=== PATIENT | female | born 1990 | race Caucasian/White ===

== ENCOUNTER 2024-02-19 10:06 | Emergency (ER) | payer MEDICAID ==
[~2024-02-19] VITALS: Ht 160 cm; Wt 60.0 kg
[~2024-02-19 10:06] MED LIST: AMLO5TAB88 PO
[2024-02-19 10:15] VITALS: BP 161/110; PULSE 71; RESP 18; TEMP 97.9; O2SAT 100
[2024-02-19] MEDS ORDERED: PERM60CR4 TP (10:26)
[2024-02-19] MEDS ORDERED: PIPE118S11 TP (10:26)
== END 2024-02-19 10:56 | disposition home or self-care (01) ==
LOC: ER 10:06
DX: B86 Scabies (principal)
CPT/HCPCS: 99282

== ENCOUNTER 2024-04-03 03:09 | Emergency (ER) | payer MEDICAID ==
[~2024-04-03] VITALS: Ht 162.6 cm; Wt 68.0 kg
[~2024-04-03 03:09] MED LIST changes: +PERM60CR4 TP; +PIPE118S11 TP
[2024-04-03 03:13] VITALS: O2SAT 100
[2024-04-03 05:06] LABS: CARBON DIOXIDE 25 mEq/L (21-32); CHLORIDE 109 mEq/L (98-107); POTASSIUM 3.3 mEq/L (3.5-5.1); SODIUM 141 mEq/L (136-145)
[2024-04-03 05:07] LABS: CALCIUM 9.1 mg/dL (8.7-10.4)
[2024-04-03 05:08] LABS: BASOPHILS % 0.6 % (0.0-2.0); EOSINOPHILS % 1.3 % (0.0-5.0); HEMOGLOBIN. 12.4 g/dL (12.0-16.0); LYMPHOCYTES % 16.7 % (20.0-50.0); MEAN CORPUSCULAR HGB CONC 33.4 g/dL (31.0-37.0); MEAN CORPUSCULAR VOLUME 98.9 fL (81.0-99.0); MEAN PLATELET VOLUME 7.3 fl (7.4-10.4); MONOCYTES % 4.4 % (2.0-8.0); PLATELET 264 x1000/uL (130-400); RED BLOOD CELL COUNT 3.74 mill/uL (4.2-5.4); RED CELL DISTRIBUTION WIDTH 12.8 % (11.6-14.6)
[2024-04-03 05:12] LABS: CREATININE 0.8 mg/dL (0.6-1.0); GLUCOSE 85 mg/dL (70-105); UREA NITROGEN BLOOD 9 mg/dL (9-23)
[2024-04-03 05:16] LABS: CLARITY URINE CLEAR (CLEAR); COLOR URINE YELLOW (YELLOW); GLUCOSE URINE NEGATIVE (NEGATIVE); KETONES URINE NEGATIVE (NEGATIVE); LEUKOCYTE ESTERASE URINE TRACE (NEGATIVE); NITRITE URINE NEGATIVE (NEGATIVE); OCCULT BLOOD URINE 2+ (NEGATIVE); PROTEIN URINE TRACE (NEGATIVE); SPECIFIC GRAVITY URINE 1.025 (1.005-1.030)
[2024-04-03 05:21] LABS: HCG SCREEN NEGATIVE
[2024-04-03] MEDS ORDERED: IBUP-2029 MT (05:49)
[2024-04-03] MEDS ORDERED: CEPH500C2 MT (05:49)
[2024-04-03 05:59] LABS: SQUAMOUS EPITHELIAL CELL URINE 1+ /lpf (RARE/1+)
[2024-04-03 06:05] LABS: BACTERIA URINE 1+
[2024-04-03] MEDS: KETOROLAC 30MG/ML VIAL IM ONE (06:33)
[2024-04-03] MEDS: AMLODIPINE 5MG TABLET PO ONE (06:35)
[2024-04-03] MEDS: POTASSIUM CHLORIDE 20MEQ TABLET SR PO ONE (06:35)
[2024-04-03] MEDS: HYDRALAZINE HCL 25MG TABLET PO ONE (07:08)
[2024-04-03] MEDS ORDERED: AMLO5TAB88 MT (07:49)
[2024-04-03 07:57] VITALS: BP 177/111; PULSE 72; RESP 16; TEMP 97.6
== END 2024-04-03 08:42 | disposition home or self-care (01) ==
LOC: ER 03:09
DX: J20.9 Acute bronchitis, unspecified (principal); R21 Rash and other nonspecific skin eruption
CPT/HCPCS: 99284; 71045; 80048; 81003; 81025; 84703; 85025; 36415; 96372; J1885

== ENCOUNTER 2024-06-28 00:50 | Emergency (ER) | payer MEDICAID, OTHER ==
[~2024-06-28] VITALS: Ht 162.6 cm; Wt 70.0 kg
[~2024-06-28 00:50] MED LIST changes: +AMLO5TAB88 MT; +CEPH500C2 MT; +IBUP-2029 MT; -PIPE118S11 TP; +PIPE118S24 TP
[2024-06-28 01:06] VITALS: BP 170/119; PULSE 89; RESP 16; TEMP 97.4; O2SAT 99
[2024-06-28] MEDS: HYDROCODONE/ACETAMINOPHEN 5/325MG TABLET PO ONE (01:50)
== END 2024-06-28 01:58 | disposition left against medical advice (07) ==
LOC: ER 00:50
DX: M79.605 Pain in left leg (principal); I10 Essential (primary) hypertension; Z79.899 Other long term (current) drug therapy
CPT/HCPCS: 99283